=== PATIENT | female | born 1995 | race American Indian/Alaskan Native ===

== ENCOUNTER 2018-12-07 14:00 | Emergency (ER) | payer MEDICAID ==
[2018-12-07] MEDS ORDERED: LIDOCAINE-MPF (1%) 10 MG/1 ML VIAL 5 ML INFILTRATI ONE (17:11)
--- NOTE | 2018-12-07 17:13 | Emergency Department Report ---
- General Chief complaint: Skin/Abscess/Foreign Body Stated complaint: BOIL Time Seen by Provider: 12/07/18 17:11 Source: patient Mode of arrival: Ambulatory Limitations: No Limitations - History of Present Illness Initial comments: Patient reports a boil to right buttock that started one week ago. complaint: abscess/boil Onset/Timin -: week(s) Location: buttocks Severity: severe Severity scale (0 -10): 10 Quality: stabbing Consistency: constant Improves with: none Worsens with: none Context: other (none) Associated symptoms: denies other symptoms Treatments Prior to Arrival: none - Related Data Previous Rx's Medication Instructions Recorded Last Taken Type Acetaminophen/Codeine [Tylenol 1 tab PO Q6H PRN #10 tab 12/07/18 Unknown Rx /Codeine # 3 tab] Clindamycin [Clindamycin CAP] 300 mg PO Q8H #30 cap 12/07/18 Unknown Rx ALBUTEROL Inhaler (OR & NICU) 1 - 2 puff IH Q6H PRN #1 inha 12/10/18 Unknown Rx [ProAir HFA Inhaler] Allergies Allergy/AdvReac Type Severity Reaction Status Date / Time bee venom protein (honey bee) Allergy Anaphylaxis Verified 12/07/18 14:02 Abscess Boil HPI - HPI Chief Complaint: Skin/Abscess/Foreign Body Stated Complaint: BOIL Home Medications: Previous Rx's Medication Instructions Recorded Last Taken Type Acetaminophen/Codeine [Tylenol 1 tab PO Q6H PRN #10 tab 12/07/18 Unknown Rx /Codeine # 3 tab] Clindamycin [Clindamycin CAP] 300 mg PO Q8H #30 cap 12/07/18 Unknown Rx ALBUTEROL Inhaler (OR & NICU) 1 - 2 puff IH Q6H PRN #1 inha 12/10/18 Unknown Rx [ProAir HFA Inhaler] Allergies/Adverse Reactions: Allergies Allergy/AdvReac Type Severity Reaction Status Date / Time bee venom protein (honey bee) Allergy Anaphylaxis Verified 12/07/18 14:02 ED Review of Systems ROS: Stated complaint: BOIL Other details as noted in HPI Constitutional: denies: chills, fever Eyes: denies: eye pain, eye discharge, vision change ENT: denies: ear pain, throat pain Respiratory: denies: cough, shortness of breath, wheezing Cardiovascular: denies: chest pain, palpitations Endocrine: no symptoms reported Gastrointestinal: denies: abdominal pain, nausea, diarrhea Genitourinary: denies: urgency, dysuria, discharge Musculoskeletal: denies: back pain, joint swelling, arthralgia Skin: other (boil). denies: rash, lesions Neurological: denies: headache, weakness, paresthesias Psychiatric: denies: anxiety, depression Hematological/Lymphatic: denies: easy bleeding, easy bruising ED Past Medical Hx - Past Medical History Previous Medical History?: No - Surgical History Past Surgical History?: No - Medications Home Medications: Home Medications Medication Instructions Recorded Confirmed Last Taken Type Acetaminophen/Codeine [Tylenol 1 tab PO Q6H PRN #10 tab 12/07/18 Unknown Rx /Codeine # 3 tab] Clindamycin [Clindamycin CAP] 300 mg PO Q8H #30 cap 12/07/18 Unknown Rx ALBUTEROL Inhaler (OR & NICU) 1 - 2 puff IH Q6H PRN #1 inha 12/10/18 Unknown Rx [ProAir HFA Inhaler] ED Physical Exam - General Limitations: No Limitations General appearance: alert, in no apparent distress - Respiratory Respiratory exam: Present: normal lung sounds bilaterally. Absent: respiratory distress, wheezes, rales, rhonchi, stridor, chest wall tenderness, accessory muscle use, decreased breath sounds, prolonged expiratory - Cardiovascular Cardiovascular Exam: Present: tachycardia, normal heart sounds. Absent: bradycardia, irregular rhythm, systolic murmur, diastolic murmur, rubs, gallop - Rectal Rectal exam: Present: other (2 cm lesion with fluctuant and surrounding erythema) - Extremities Exam Extremities exam: Present: normal inspection, full ROM, normal capillary refill. Absent: tenderness, pedal edema, joint swelling, calf tenderness - Back Exam Back exam: Present: normal inspection, full ROM - Neurological Exam Neurological exam: Present: alert, oriented X3, CN II-XII intact, normal gait, reflexes normal. Absent: motor sensory deficit - Psychiatric Psychiatric exam: Present: normal affect, normal mood - Skin Skin exam: Present: warm, intact, erythema (right buttock) ED Course Vital Signs 12/07/18 12/07/18 17:30 18:09 Temperature 98.5 F 98.5 F Pulse Rate 106 H 100 H Respiratory 18 16 Rate Blood Pressure 116/86 Blood Pressure 134/81 [Right] O2 Sat by Pulse 100 100 Oximetry - I & D Buttocks Type of Procedure: Simple Site: right buttock Blade Size: 11 I & D Procedure: betadine prep, sterile drapes applied, sterile dressing applied Progress: Patient tolerated procedure well ED Medical Decision Making - Lab Data Vital Signs 12/07/18 17:30 Temperature 98.5 F Pulse Rate 106 H Respiratory 18 Rate Blood Pressure 116/86 O2 Sat by Pulse 100 Oximetry - Medical Decision Making During the course of ED, all other systems were unremarkable except for documentation in HPI. 1 cm abscess on the right inner buttock was I & D, patient tolerated the procedure well. She was sent home with prescriptions for Clindamycin and Tylenol # 3, instructed to do warm bath soaks three times a day and remove the Iodoform in 48 hours. She verbalized understanding - Differential Diagnosis Right Buttock Abscess, Cellulitis Critical care attestation.: If time is entered above; I have spent that time in minutes in the direct care of this critically ill patient, excluding procedure time. ED Disposition Clinical Impression: Abscess Disposition: DC-01 TO HOME OR SELFCARE Is pt being admited?: No Does the pt Need Aspirin: No Condition: Stable Instructions: Abscess (ED) Additional Instructions: Take medication as directed. No drinking or driving while taking pain medication. Warm bath soaks three times a day. Return back to the ED in 48 hours for packing removal. Follow up with selective referral given at discharge. Return back to the ED for worsening symptoms or concerns Prescriptions: Clindamycin [Clindamycin CAP] 300 mg PO Q8H #30 cap Acetaminophen/Codeine [Tylenol /Codeine # 3 tab] 1 tab PO Q6H PRN #10 tab PRN Reason: Pain, Moderate (4-6) Referrals: PRIMARY CARE, [Primary Care Provider] - 3-5 Days [facility] [Outside] - 3-5 Days Forms: Work/School Release Form(ED) Time of Disposition: 18:09
[2018-12-07 18:10] VITALS: BP 134/81
== END 2018-12-07 18:17 | disposition home or self-care (01) ==
LOC: ED 14:00
DX: L02.31 Cutaneous abscess of buttock (principal)
CPT/HCPCS: 99282

== ENCOUNTER 2018-12-10 05:28 | Emergency (ER) | payer MEDICAID ==
[2018-12-10 05:34] VITALS: BP 140/76
--- NOTE | 2018-12-10 06:39 | Emergency Department Report ---
ED General Adult HPI - General Chief complaint: Laceration/Recheck/Suture Stated complaint: PACKING REMOVAL Source: patient Mode of arrival: Ambulatory Limitations: No Limitations - History of Present Illness Initial comments: Patient is a 23-year-old -[place] female with no past medical history except recurrent folliculitis presents to the ED for removal of packing from a recently incised and drained right gluteal abscess 2 days ago. Patient states that the she is currently on clindamycin and pain medication as needed. Patient denies fever, chills, nausea, vomiting, dizziness, headache, chest pain, shortness of breath, numbness and tingling or weakness of lower extremities bilaterally. MD Complaint: abscess packing removal; cellulitis of buttock -: Sudden, days(s) (2) Location: buttocks Radiation: non-radiation Severity scale (0 -10): 5 Quality: aching, sharp Consistency: constant Improves with: none Worsens with: none Associated Symptoms: denies other symptoms. denies: confusion, chest pain, cough, diaphoresis, fever/chills, headaches, loss of appetite, malaise, nausea/vomiting, shortness of breath, syncope, weakness Treatments Prior to Arrival: none - Related Data Previous Rx's Medication Instructions Recorded Last Taken Type Acetaminophen/Codeine [Tylenol 1 tab PO Q6H PRN #10 tab 12/07/18 Unknown Rx /Codeine # 3 tab] Clindamycin [Clindamycin CAP] 300 mg PO Q8H #30 cap 12/07/18 Unknown Rx Allergies Allergy/AdvReac Type Severity Reaction Status Date / Time bee venom protein (honey bee) Allergy Anaphylaxis Verified 12/07/18 14:02 ED Review of Systems ROS: Stated complaint: PACKING REMOVAL Other details as noted in HPI Constitutional: denies: chills, fever Eyes: denies: eye pain, eye discharge, vision change ENT: denies: ear pain, throat pain Respiratory: denies: cough, shortness of breath, wheezing Cardiovascular: denies: chest pain, palpitations Endocrine: no symptoms reported Gastrointestinal: denies: abdominal pain, nausea, diarrhea Genitourinary: denies: urgency, dysuria, discharge Musculoskeletal: denies: back pain, joint swelling, arthralgia Skin: rash (painful swollen mildly erythematous right gluteal cleft open abscess wound with packing). denies: lesions Neurological: denies: headache, weakness, paresthesias Psychiatric: denies: anxiety, depression Hematological/Lymphatic: denies: easy bleeding, easy bruising ED Past Medical Hx - Past Medical History Previous Medical History?: No - Surgical History Past Surgical History?: No - Social History Smoking Status: Never Smoker Substance Use Type: Marijuana - Medications Home Medications: Home Medications Medication Instructions Recorded Confirmed Last Taken Type Acetaminophen/Codeine [Tylenol 1 tab PO Q6H PRN #10 tab 12/07/18 Unknown Rx /Codeine # 3 tab] Clindamycin [Clindamycin CAP] 300 mg PO Q8H #30 cap 12/07/18 Unknown Rx ED Physical Exam - General Limitations: No Limitations General appearance: alert, in no apparent distress - Head Head exam: Present: atraumatic, normocephalic, normal inspection - Eye Eye exam: Present: normal appearance, PERRL, EOMI Pupils: Present: normal accommodation - ENT ENT exam: Present: normal exam, normal orophraynx, mucous membranes moist, TM's normal bilaterally, normal external ear exam - Neck Neck exam: Present: normal inspection, full ROM - Respiratory Respiratory exam: Present: normal lung sounds bilaterally. Absent: respiratory distress, rales, rhonchi, stridor, chest wall tenderness, accessory muscle use - Cardiovascular Cardiovascular Exam: Present: normal rhythm, tachycardia, normal heart sounds. Absent: systolic murmur, diastolic murmur, rubs, gallop - GI/Abdominal GI/Abdominal exam: Present: soft, normal bowel sounds. Absent: tenderness, rebound, hyperactive bowel sounds, hypoactive bowel sounds, organomegaly - Extremities Exam Extremities exam: Present: normal inspection, full ROM, normal capillary refill - Back Exam Back exam: Present: normal inspection, full ROM. Absent: tenderness, CVA tenderness (R), CVA tenderness (L), muscle spasm, vertebral tenderness - Neurological Exam Neurological exam: Present: alert, oriented X3, CN II-XII intact, normal gait, reflexes normal - Psychiatric Psychiatric exam: Present: normal affect, normal mood - Skin Skin exam: Present: warm, dry, intact, normal color, rash (swollen, mildly tender right gluteal cleft open abscess wound with scant purulent discharge. Packing removed successfully.) ED Course Vital Signs 12/10/18 05:31 Temperature 98.2 F Pulse Rate 114 H Respiratory 12 Rate Blood Pressure 140/76 O2 Sat by Pulse 98 Oximetry - Reevaluation(s) Reevaluation #1: 12/10/18 06:41 This is a 23-year-old female who presented to the ED for packing removal from recently incised and drained right gluteal cleft abscess wound 2 days ago. Patient states that she has been taking previously prescribed antibiotics and pain medications. In the ED, patient is alert and oriented 3 and is not in distress but appears to be in pain, and she isn't crying during the triage and physical exam process. The packing was successfully removed from the right gluteal abscess wound. The wound was then cleaned thoroughly and dressed appropriately with 4 x 4 gauze and Tegaderm. No additional packing material was reintroduce into the wound. Patient was discharged home and advised to continue taking the previously prescribed medications and to follow-up with her primary care physician in 5-7 days for reevaluation or return to the ED immediately if symptoms get worse. ED Medical Decision Making - Medical Decision Making This is a 23-year-old female who presented to the ED for packing removal from recently incised and drained right gluteal cleft abscess wound 2 days ago. Patient states that she has been taking previously prescribed antibiotics and pain medications. In the ED, patient is alert and oriented 3 and is not in distress but appears to be in pain, and she isn't crying during the triage and physical exam process. The packing was successfully removed from the right gluteal abscess wound. The wound was then cleaned thoroughly and dressed appropriately with 4 x 4 gauze and Tegaderm. No additional packing material was reintroduce into the wound. Patient was discharged home and advised to continue taking the previously prescribed medications and to follow-up with her primary care physician in 5-7 days for reevaluation or return to the ED immediately if symptoms get worse - Differential Diagnosis cellulitis; hidradenitis suppurativa; abscess Critical care attestation.: If time is entered above; I have spent that time in minutes in the direct care of this critically ill patient, excluding procedure time. ED Disposition Clinical Impression: Cellulitis of right buttock, Abscess packing removal Disposition: -01 TO HOME OR SELFCARE Is pt being admited?: No Does the pt Need Aspirin: No Condition: Stable Instructions: Cellulitis (ED), Abscess (ED) Additional Instructions: Continue taking the previously prescribed medications for pain and antibiotics. Follow-up with your primary care physician in 5-7 days for reevaluation. Return to the ED immediately if symptoms get worse. Referrals: PRIMARY CARE, [Primary Care Provider] - 3-5 Days Time of Disposition: 06:35 Print Language: SCOTTISH
== END 2018-12-10 06:50 | disposition home or self-care (01) ==
LOC: ED 05:28
DX: Z48.01 Encounter for change or removal of surgical wound dressing (principal); F12.10 Cannabis abuse, uncomplicated